=== PATIENT | female | born 1975 | race Caucasian/White ===

== ENCOUNTER 2016-07-16 22:24 | Emergency (ER) | payer OTHER ==
[~2016-07-16] VITALS: Ht 165.1 cm; Wt 84.8 kg
[~2016-07-16 22:24] MED LIST: BC PILL; IBUPROFEN800 MG PO; [UNRECOGNIZED DRUG - OTHER] PO
[2016-07-16 22:37] VITALS: BP 129/93
--- NOTE | 2016-07-16 22:53 | NUR ---
PT TAKEN TO BED 4
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
--- NOTE | 2016-07-16 23:31 | NUR ---
Dr. Teresa evaluating patient at bedside.
--- NOTE | 2016-07-16 23:47 | NUR ---
X-Ray at bedside.
[2016-07-17 00:54] VITALS: BP 119/87
--- NOTE | 2016-07-17 00:54 | NUR ---
Patient discharged with v/s stable. Written and verbal after care instructions given and explained. Patient verbalized understanding. Ambulatory with steady gait. All questions addressed prior to discharge. Advised to follow up with PMD.
== END 2016-07-17 00:54 | disposition home or self-care (01) ==
LOC: MED 22:24
DX: S93.402A Sprain of unspecified ligament of left ankle, initial encounter (principal); X50.1XXA Overexertion from prolonged static or awkward postures, initial encounter; Y93.89 Activity, other specified; Y92.89 Other specified places as the place of occurrence of the external cause; Y99.8 Other external cause status
CPT/HCPCS: 73610; 99284; Q0092